=== PATIENT | male | born 1930 | race Caucasian/White ===

== ENCOUNTER 2020-05-28 02:42 | Outpatient (CLI) | payer MEDICARE, OTHER | END 2020-05-28 02:43 | disposition short-term general hospital (02) | LOC: EMS 02:42 | PROVIDERS: ATTEND Surgery | DX: R11.2 Nausea with vomiting, unspecified (principal); R06.02 Shortness of breath | CPT/HCPCS: A0425; A0427 ==

== ENCOUNTER 2020-10-22 13:39 | Outpatient (CLI) | payer MEDICARE, OTHER ==
--- NOTE | 2020-10-22 16:41 | XRAY Report ---
PROCEDURE: Foot 3 View LT INDICATIONS: PAIN TECHNIQUE: 2 views of the foot were acquired. COMPARISON: None FINDINGS: Bones: No fractures or dislocations. No suspicious bony lesions. Soft tissues: No tibiotalar joint effusion. Achilles tendon appears normal. Vasculature demonstrat es atherosclerotic calcifications. IMPRESSION: 1. No acute abnormality of the left foot. 2. Atherosclerotic calcifications. Reviewed by: Glen Tello on 10/22/2020 4:39 PM PST Approved by: Glen Tello on 10/22/2020 4:39 PM PST Station ID: [id number]
--- NOTE | 2020-10-22 16:43 | XRAY Report ---
PROCEDURE: Ankle 3 View LT INDICATIONS: PAIN IN LEFT LEG, ANKLE LT FOOT TECHNIQUE: 3 views of the ankle were acquired. COMPARISON: None FINDINGS: Bones: No fractures or dislocations. Ankle mortise is normally aligned. No suspicious bony lesions . Soft tissues: No tibiotalar joint effusion. Vasculature demonstrates atherosclerotic calcifications. The Achilles tendon demonstrates calcifications consistent with prior injury. IMPRESSION: No acute abnormality of the left ankle. Reviewed by: Glen Tello on 10/22/2020 4:42 PM PST Approved by: Glen Tello on 10/22/2020 4:42 PM PST Station ID: [id number]
--- NOTE | 2020-10-22 16:46 | XRAY Report ---
PROCEDURE: Tib/Fib LT INDICATIONS: PAIN IN LEFT LEG, ANKLE LT FOOT TECHNIQUE: 2 views of the tibia and fibula were acquired. COMPARISON: None FINDINGS: Bones: No fractures or dislocations. No suspicious bony lesions. Mild degenerative changes of the left knee. Soft tissues: No suspicious soft tissue calcifications or masses. Vasculature demonstrates atherosc lerotic calcifications. IMPRESSION: No acute abnormality of the left tibia/fibula Reviewed by: Glen Tello on 10/22/2020 4:44 PM PST Approved by: Glen Tello on 10/22/2020 4:44 PM PST Station ID: [id number]
== END 2020-10-22 13:40 | disposition home or self-care (01) ==
LOC: DI 13:39
PROVIDERS: ATTEND Internal Medicine
DX: M79.605 Pain in left leg (principal); M25.572 Pain in left ankle and joints of left foot; I70.208 Unspecified atherosclerosis of native arteries of extremities, other extremity

== ENCOUNTER 2020-10-31 09:28 | Outpatient (CLI) | payer MEDICARE, OTHER | END 2020-10-31 09:29 | disposition short-term general hospital (02) | LOC: EMS 09:28 | PROVIDERS: ATTEND Surgery | DX: R55 Syncope and collapse (principal) | CPT/HCPCS: A0425; A0427 ==

== ENCOUNTER 2020-12-30 10:19 | Outpatient (CLI) | payer MEDICARE, OTHER ==
--- NOTE | 2020-12-30 15:17 | XRAY Report ---
PROCEDURE: Knee 3 View RT INDICATIONS: RIGHT KNEE PAIN TECHNIQUE: 3 views of the right knee(s) were acquired. COMPARISON: X-ray tibia-fibula 10/22/2020, x-ray foot 10/22/2020 FINDINGS: Bones: No fractures or dislocations. No suspicious bony lesions. Mild medial and patellofemoral co mpartment narrowing is present. No erosions. Minimal chondrocalcinosis is present. Soft tissues: No joint effusion. No suspicious soft tissue calcifications. IMPRESSION: Medial compartment narrowing suggestive arthritis. Reviewed by: Tessa Brown MD on 12/30/2020 3:15 PM PDT Approved by: Tessa Brown MD on 12/30/2020 3:15 PM PDT Station ID: [id number]
== END 2020-12-30 10:20 | disposition home or self-care (01) ==
LOC: DI.N 10:19
PROVIDERS: ATTEND Internal Medicine
DX: M25.561 Pain in right knee (principal)